=== PATIENT | female | born 1955 | race Caucasian/White ===

== ENCOUNTER 2020-05-31 11:12 | Inpatient (IN) | payer OTHER ==
[2020-05-31 12:09] LABS: Absolute Lymphocytes (CBC) 1.5 K/uL (0.7-4.9); Basophils % 0.1 % (0-1.3); Hematocrit 33.7 % (36.0-45.0); Lymphocytes % 5.8 % (15.3-44.8); MPV 8.7 fL (7.6-11.3); RBC Red Blood Cell Count 4.19 M/uL (3.86-4.86)
[2020-05-31] MEDS ORDERED: NA CHLORIDE 0.9% 2,000 ML ONE (12:13)
[2020-05-31 12:21] LABS: Protime INR 1.39
[2020-05-31] MEDS ORDERED: NA CHLORIDE 0.9% 250 ML ONE (12:36)
[2020-05-31] MEDS ORDERED: PANTOPRAZOLE 40 MG INJ ONE (12:36)
[2020-05-31] MEDS ORDERED: ACETAMINOPHEN 650MG/RECT SUPP PR ONE (12:44)
[2020-05-31] MEDS ORDERED: DIPHENHYDRAMINE 50 MG/ML VIAL ONE (12:44)
[2020-05-31 12:47] LABS: Platelet Estimate ADEQ; White Blood Cell Scan OK (OK)
[2020-05-31 12:48] LABS: Albumin 2.5 g/dL (3.4-5.0); Bilirubin Direct 0.8 mg/dL (0-0.2); Bilirubin Total 1.4 mg/dL (0.2-1.0); Blood Morphology Comment NOT SEEN (NOT SEEN); Platelets, Giant PRESENT; Potassium 4.4 mmol/L (3.5-5.1); Protein, Total 7.8 g/dL (6.4-8.2)
[2020-05-31] MEDS ORDERED: DOPAMINE/D5W 400 MG/250 ML BAG IV ONE ×2 (12:56→17:54)
--- NOTE | 2020-05-31 13:06 | EDPHYS ---
Physician Documentation [facility] Name: Inna Santiago Age: 64 yrs Sex: Female : 1955 Arrival Date: 05/31/2020 Time: 11:23 Bed 14 Private MD: ZAHRAA CUNNINGHAM ED Physician Maximino Sherman HPI: 05/31 12:58 This 64 yrs old Female presents to ER via Wheelchair with complaints of abena Breathing Difficulty, Shortness Of Breath. 12:58 This 64 yrs old Female presents to ER via Wheelchair with complaints of abena Breathing Difficulty, Shortness Of Breath. 12:58 The patient has shortness of breath at rest, with light activity. Onset: The abena symptoms/episode began/occurred 2 day(s) ago. Duration: The symptoms are continuous, and are steadily getting worse. The patient's shortness of breath is aggravated by coughing, exertion, light activity, supine position, talking, walking, is alleviated by pursed lip breathing, rest, application of supplemental oxygen. Associated signs and symptoms: Pertinent positives: non-productive cough. Severity of symptoms: At their worst the symptoms were moderate severe in the emergency department the symptoms are unchanged are worse markedly. The patient has not experienced similar symptoms in the past. 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 - Social history:: Smoking status: Patient denies any tobacco usage or history of. - Family history:: not pertinent. ROS: 12:58 Constitutional: Negative for fever, chills, and weight loss, Eyes: Negative for injury, abena pain, redness, and discharge, ENT: Negative for injury, pain, and discharge, Neck: Negative for injury, pain, and swelling, Cardiovascular: Negative for chest pain, palpitations, and edema, Abdomen/GI: Negative for abdominal pain, nausea, vomiting, diarrhea, and constipation, Back: Negative for injury and pain, : Negative for injury, bleeding, discharge, and swelling, MS/Extremity: Negative for injury and deformity, Skin: Negative for injury, rash, and discoloration, Psych: Negative for depression, anxiety, suicide ideation, homicidal ideation, and hallucinations, Allergy/Immunology: Negative for hives, rash, and allergies, Endocrine: Negative for neck swelling, polydipsia, polyuria, polyphagia, and marked weight changes, Hematologic/Lymphatic: Negative for swollen nodes, abnormal bleeding, and unusual bruising. 12:58 Respiratory: Positive for cough, with no reported sputum, dyspnea on exertion, shortness of breath, at rest. 12:58 Skin: Positive for pallor. Exam: 12:58 Head/Face: Normocephalic, atraumatic. Eyes: Pupils equal round and reactive to light, abena extra-ocular motions intact. Lids and lashes normal. Conjunctiva and sclera are non-icteric and not injected. Cornea within normal limits. Periorbital areas with no swelling, redness, or edema. ENT: Nares patent. No nasal discharge, no septal abnormalities noted. Tympanic membranes are normal and external auditory canals are clear. Oropharynx with no redness, swelling, or masses, exudates, or evidence of obstruction, uvula midline. Mucous membranes moist. Neck: Trachea midline, no thyromegaly or masses palpated, and no cervical lymphadenopathy. Supple, full range of motion without nuchal rigidity, or vertebral point tenderness. No Meningismus. Chest/axilla: Normal chest wall appearance and motion. Nontender with no deformity. No lesions are appreciated. Abdomen/GI: Soft, non-tender, with normal bowel sounds. No distension or tympany. No guarding or rebound. No evidence of tenderness throughout. Back: No spinal tenderness. No costovertebral tenderness. Full range of motion. Female : Normal external genitalia. Skin: Warm, dry with normal turgor. Normal color with no rashes, no lesions, and no evidence of cellulitis. 12:58 Constitutional: The patient appears lethargic, in obvious distress, moderately distressed. 12:58 Respiratory: moderate respiratory distress is noted, Respirations: labored breathing, Breath sounds: decreased breath sounds, rhonchi, that are mild, Respiratory rate: 87 13:19 ECG was reviewed by the Attending Physician. [facility] 13:23 Abdomen/GI: Rectal exam: is unremarkable, rectal tone Stool: guaiac negative, abena hemorrhoid(s), are not appreciated, mass, is not appreciated, swelling, is not appreciated, tenderness, is not appreciated, fecal impaction, is not appreciated. Vital Signs: 11:40 BP 102 / 62; Pulse 128; Resp 40 S; Temp 97.7(A); Pulse Ox 68% on R/A; Weight 66.22 kg aa5 (R); Height 5 ft. 2 in. (157.48 cm) (R); 11:40 Pulse Ox 95% on Non-rebreather mask; ca1 11:41 Pulse Ox 89% on Non-rebreather mask; aa5 12:32 BP 59 / 41; Pulse 67; Resp 35; Pulse Ox 93% on 100% BiPAP; zb 12:53 BP 58 / 36; Pulse 80; Resp 35; Pulse Ox 98% on 100% BiPAP; zb 12:58 BP 55 / 27; Pulse 87; Resp 27; Pulse Ox 94% on 100% BiPAP; zb 13:30 BP 89 / 39; Pulse 85; Resp 32; Pulse Ox 94% on 100% BiPAP; zb 14:19 BP 116 / 55; Pulse 95; Resp 30; Pulse Ox 96% on 100% BiPAP; zb 18:00 BP 111 / 49; Pulse 98; Resp 27; Pulse Ox 76% on 100% BiPAP; zb 18:30 BP 113 / 82; Pulse 86; Resp 28; Pulse Ox 87% on 100% BiPAP; zb 19:00 BP 120 / 61; Pulse 102; Resp 33; Pulse Ox 87% on 100% BiPAP; zb 19:21 BP 102 / 74; Pulse 100; Resp 33; Pulse Ox 87% on BiPAP; tt3 11:40 Body Mass Index 26.70 (66.22 kg, 157.48 cm) aa5 Procedures: 13:21 Central Line: the site was prepped with Betadine, in sterile fashion, a triple lumen abena catheter was inserted, in the right femoral vein, in 1 attempts. placement was verified, by blood return, the site was dressed with using sterile technique. MDM: 11:43 Patient medically screened. abena 13:10 Differential diagnosis: Anemia Bronchitis CHF exacerbation, Chronic Obstructive abena Pulmonary Disease Myocardial Infarction pneumonia, pulmonary edema, Pulmonary Embolism reactive airway disease, Sepsis Unstable Angina. Antibiotic administration: vanco and cefepime. The patient's Wells Deep Vein Thrombosis Score was calculated as follows: Total Score: 0-2 Pts- Low Risk. The patient's pulmonary embolism risk score was calculated as follows: Total Score: 0-2 points. This patient was found to be at low risk for a pulmonary embolism by using the Well's assessment criteria. Immunization status: Influenza vaccine: Data reviewed: vital signs, nurses notes, lab test result(s), EKG, radiologic studies, CT scan, plain films. Data interpreted: monitoring manager: rate is 87 beats/min, rhythm is regular, Pulse oximetry: on 100% oxygen by non-rebreather, is 92 %. Arterial blood gas: is normal. Test interpretation: by ED physician or midlevel provider: ECG, plain radiologic studies. Counseling: I had a detailed discussion with the patient and/or guardian regarding: the historical points, exam findings, and any diagnostic results supporting the discharge/admit diagnosis, lab results, radiology results. 05/31 11:46 Order name: C-Reactive Protein bp 05/31 11:46 Order name: Amylase, Serum bp 05/31 11:46 Order name: Basic Metabolic Panel bp 05/31 11:46 Order name: Blood Culture Adult (2) bp 05/31 11:46 Order name: CBC with Diff bp 05/31 11:46 Order name: Ckmb bp 05/31 11:46 Order name: CPK bp 05/31 11:46 Order name: Lactate bp 05/31 11:46 Order name: LFT's bp 05/31 11:46 Order name: Lipase bp 05/31 11:46 Order name: Procalcitonin bp 05/31 11:46 Order name: Protime (+inr) bp 05/31 11:46 Order name: Ptt, Activated bp 05/31 11:46 Order name: Troponin (emerg Dept Use Only) bp 05/31 11:46 Order name: Urine Microscopic Only bp 05/31 11:49 Order name: Basic Metabolic Panel abena 05/31 11:49 Order name: CBC with Diff abena 05/31 11:49 Order name: LFT's abena 05/31 11:49 Order name: Magnesium abena 05/31 11:49 Order name: NT PRO-BNP 05/31 11:49 Order name: PT-INR 05/31 11:49 Order name: Troponin (emerg Dept Use Only) abena 05/31 11:49 Order name: Lipase 05/31 11:49 Order name: Blood Culture Adult (2) abena 05/31 11:49 Order name: Urine Culture [facility] 05/31 11:49 Order name: Lactate [facility] 05/31 11:50 Order name: COVID-19 : Document "Date of Symptom Onset" if Symptomatic. [facility] 05/31 11:50 Order name: Ferritin bp 05/31 11:50 Order name: Flu bp 05/31 11:46 Order name: Chest Single View XRAY bp 05/31 11:49 Order name: XRAY Chest (1 view) [facility] 05/31 11:58 Order name: Type And Screen [facility] 05/31 12:03 Order name: Blood Culture [facility] 05/31 12:24 Order name: CBC with Automated Diff; Complete Time: 12:54 [facility] 05/31 12:25 Order name: Protime (+INR); Complete Time: 12:27 [facility] 05/31 12:25 Order name: PTT, Activated Partial Thromb; Complete Time: 12:27 [facility] 05/31 12:28 Order name: Glucose, Ancillary Testing; Complete Time: 12:29 [facility] 05/31 12:31 Order name: Lactate; Complete Time: 12:54 [facility] 05/31 12:47 Order name: ABG [facility] 05/31 12:49 Order name: CBC Smear Scan; Complete Time: 12:54 [facility] 05/31 12:55 Order name: Basic Metabolic Panel; Complete Time: 13:14 [facility] 05/31 12:55 Order name: Liver (Hepatic) Function; Complete Time: 13:14 [facility] 05/31 12:55 Order name: Creatine Phosphokinase; Complete Time: 13:14 [facility] 05/31 12:55 Order name: Amylase; Complete Time: 13:14 [facility] 05/31 12:55 Order name: Lipase; Complete Time: 13:14 [facility] 05/31 12:55 Order name: Procalcitonin; Complete Time: 12:55 [facility] 05/31 12:58 Order name: Type and Screen [facility] 05/31 12:59 Order name: ABO/RH no charge; Complete Time: 13:09 [facility] 05/31 13:10 Order name: CKMB Creatine Kinase MB; Complete Time: 13:14 [facility] 05/31 13:10 Order name: Troponin (Emerg Dept Use Only); Complete Time: 13:14 [facility] 05/31 13:10 Order name: C-Reactive Protein; Complete Time: 13:14 [facility] 05/31 13:23 Order name: CORONAVIRUS [facility] 05/31 13:24 Order name: Influenza Screen (A [facility] 05/31 13:43 Order name: ABG Arterial Blood Gas; Complete Time: 14:25 [facility] 05/31 14:24 Order name: COVID-19/FLU A+B; Complete Time: 14:25 [facility] 05/31 15:18 Order name: Urine Dipstick--Ancillary (enter results) eb 05/31 15:26 Order name: Lactate sg 05/31 15:30 Order name: Urine Dipstick-Ancillary; Complete Time: 20:32 [facility] 05/31 16:03 Order name: Urine Microscopic Only; Complete Time: 20:32 [facility] 05/31 16:27 Order name: Lactate Sepsis 2 HR Follow-up; Complete Time: 20:32 [facility] 05/31 21:29 Order name: Glucose, Ancillary Testing [facility] 05/31 11:46 Order name: Accucheck; Complete Time: 12:25 bp 05/31 11:46 Order name: Cardiac monitoring; Complete Time: 12:25 bp 05/31 11:46 Order name: EKG - Nurse/Tech; Complete Time: 12:25 bp 05/31 11:46 Order name: IV Saline Lock - Large Bore; Complete Time: 12:25 bp 05/31 11:46 Order name: Labs collected and sent; Complete Time: 12:25 bp 05/31 11:46 Order name: O2 Per Protocol; Complete Time: 12:25 bp 05/31 11:46 Order name: O2 Sat Monitoring; Complete Time: 12:25 bp 05/31 11:46 Order name: Urine Dipstick-Ancillary (obtain specimen); Complete Time: 16:39 bp 05/31 11:49 Order name: EKG; Complete Time: 11:50 abena 05/31 11:49 Order name: Urine Dipstick-Ancillary (obtain specimen); Complete Time: 16:39 abena 05/31 11:49 Order name: Don; Complete Time: 16:39 abena 05/31 11:49 Order name: BIPAP [facility] 05/31 12:23 Order name: Central Line Kit; Complete Time: 12:24 abena 05/31 12:30 Order name: CT Chest, Abdomen, Pelvis - W/Contrast [facility] 03/11 13:17 Order name: EKG; Complete Time: 13:18 abena 05/31 13:17 Order name: EKG - Nurse/Tech; Complete Time: 16:49 abena 05/31 15:09 Order name: RAD; Complete Time: 20:32 EDMS 05/31 19:35 Order name: XRAY Chest (1 view) em 05/31 20:31 Order name: RAD; Complete Time: 20:32 EDMS 05/31 20:31 Order name: XRAY Chest (1 view) [id number] 05/31 20:57 Order name: RAD EDTN 05/31 21:27 Order name: XRAY Chest (1 view) mw2 EC:19 Rate is 84 beats/min. Rhythm is regular. QRS [place] is Normal. [place] interval is normal. QRS abena interval is normal. QT interval is normal. No Q waves. T waves are Normal. ST Segment is depressed in leads II, III, aVF, V2, V3, V4, V5, V6. Administered Medications: 11:46 Drug: NS 0.9% (30 ml/kg) 30 ml/kg Route: IV; Rate: bolus; Site: right antecubital; aa5 12:45 Drug: ProTONIX 80 mg Route: IVP; Site: right antecubital; zb 13:45 Follow up: Response: No adverse reaction zb 12:45 Drug: Dopamine drip 5 mcg/kg/min - (DOPamine 400 mg, D5W 250 ml) Route: IV; Rate: zb calculated rate; Site: right femoral; 23:06 Follow up: Response: No adverse reaction; Blood pressure is elevated; IV Status: zb Infusion continued; IV Intake: 300ml 13:16 Drug: vancoMYCIN 1 grams Route: IVPB; Infused Over: 2 hrs; Site: right forearm; zb 15:13 Follow up: Response: No adverse reaction; IV Status: Completed infusion; IV Intake: zb 250ml 13:39 Drug: Levophed (4 mg/250 mL D5W 4 mcg/min Route: IV; Rate: calculated rate; Site: right zb forearm; 23:25 Follow up: IV Status: Infusion continued upon admission zb 14:00 Drug: Pepcid 20 mg Route: IVP; Site: left antecubital; zb 15:00 Follow up: Response: No adverse reaction zb 14:06 Drug: Cefepime 1 grams Route: IVPB; Rate: 200 ml/hr; Infused Over: 30 mins; Site: left zb forearm; 15:06 Follow up: Response: No adverse reaction; IV Status: Completed infusion; IV Intake: zb 100ml 14:24 Drug: Solu-CORTEF 100 mg Route: IVP; Site: right femoral; zb 15:00 Follow up: Response: No adverse reaction zb 14:24 Drug: Aspirin Suppository 300 mg Route: IL; zb 15:00 Follow up: Response: No adverse reaction zb 16:38 Drug: ProTONIX 8 mg/hr Route: IV; Rate: 25 ml/hr; Site: left antecubital; zb 18:38 Follow up: IV Status: Order to discontinue infusion; IV Intake: 50ml zb 17:15 Drug: Heparin (NE-Bolus No thrombolytic) - HEParin 60 units/kg {Co-Signature: bp (Alphonso Sawyer RN).} Route: IVP; Site: left forearm; 17:20 Follow up: Response: No adverse reaction zb 17:17 Drug: Heparin (NE Drip) 12 units/kg/hr - (HEParin 17656 units, D5W 500 ml) zb {Co-Signature: bp (Alphonso Sawyer RN).} Route: IV; Rate: calculated rate; Site: left forearm; 23:06 Follow up: Response: No adverse reaction; IV Status: Infusion continued zb 17:18 Drug: Cefepime 1 grams Route: IVPB; Rate: 200 ml/hr; Infused Over: 30 mins; Site: right zb femoral; 18:00 Follow up: Response: No adverse reaction; IV Status: Completed infusion; IV Intake: zb 100ml 19:27 Drug: Etomidate 15 mg Route: IVP; Site: right antecubital; em 20:00 Follow up: Response: No adverse reaction zb 19:29 Drug: Succinylcholine 100 mg Route: IVP; Site: right antecubital; em 20:00 Follow up: Response: Marked relief of symptoms zb 19:44 Drug: fentaNYL (PF) 50 mcg Route: IVP; Site: right antecubital; em 20:00 Follow up: Response: No adverse reaction; Marked relief of symptoms zb 19:45 Drug: Versed 2 mg Route: IVP; Site: right antecubital; em 20:00 Follow up: Response: No adverse reaction; Marked relief of symptoms zb 19:46 Drug: Propofol 5 mcg/kg/min {Note: initiated at 5 mcg/min.} Route: IV; Rate: calculated em rate; Site: right femoral; 23:15 Follow up: Response: No adverse reaction; IV Status: Infusion continued zb 20:10 Drug: fentaNYL (PF) 1 mcg/kg/h {Note: initiated at 30 mcg/hr.} Route: IV; Rate: em calculated rate; Site: right antecubital; 23:16 Follow up: Response: No adverse reaction; IV Status: Infusion continued upon transfer zb Disposition: 05/31/20 13:05 Hospitalization ordered by Jed Mercado for Inpatient Admission. Preliminary diagnosis are Hypotension, Hypoxemia, Severe sepsis with septic shock, Type 1 diabetes mellitus, Pneumonia, unspecified organism - bilateral covid 19 positive. - Bed requested for Intensive Care Unit. - Status is Inpatient Admission. mw2 - Condition is Guarded. - Problem is new. - Symptoms are unchanged. Signatures: Dispatcher [employer] Lubna Okeefe RN Maximino Owen MD MD cha Munoz, Edgar RN Farzana Antony RN RN aa5 Woody Olea PA PA [id number] Peltier, Brian, RN RN bp Margarita Carpenter mw2 Helen Sanchez RN RN ca1 Brown, Zipporah, RN RN zb Alphonso Sawyer RN bp Corrections: (The following items were deleted from the chart) 12:25 11:49 Cardiac monitoring ordered. [facility]5 12:25 11:49 EKG - Nurse/Tech ordered. [facility] aa5 12:26 11:49 IV Saline Lock ordered. [facility] aa5 12:26 11:49 Labs collected and sent ordered. [facility] aa5 12:26 11:49 Oxygen Per Protocol ordered. [facility] aa5 12:26 11:49 O2 Sat Monitoring ordered. [facility] aa5 13:05 13:05 Hospitalization Ordered by Jed Mercado for Inpatient Admission. Preliminary [facility] diagnosis is Hypotension; Hypoxemia; Severe sepsis with septic shock; Type 1 diabetes mellitus. Bed requested for Intensive Care Unit. Status is Inpatient Admission. Condition is Guarded. Problem is new. Symptoms are unchanged. abena 14:27 13:05 05/31/2020 13:05 Hospitalization Ordered by Jed Mercado for Inpatient abena Admission. Preliminary diagnosis is Hypotension; Hypoxemia; Severe sepsis with septic shock; Type 1 diabetes mellitus; Pneumonia, unspecified organism - bilateral. Bed requested for Intensive Care Unit. Status is Inpatient Admission. Condition is Guarded. Problem is new. Symptoms are unchanged. abena 20:12 14:27 05/31/2020 13:05 Hospitalization Ordered by Jed Mercado for Inpatient dw Admission. Preliminary diagnosis is Hypotension; Hypoxemia; Severe sepsis with septic shock; Type 1 diabetes mellitus; Pneumonia, unspecified organism - bilateral covid 19 positive. Bed requested for Intensive Care Unit. Status is Inpatient Admission. Condition is Guarded. Problem is new. Symptoms are unchanged. abena 21:38 20:12 05/31/2020 13:05 Hospitalization Ordered by Jed Mercado for Inpatient mw2 Admission. Preliminary diagnosis is Hypotension; Hypoxemia; Severe sepsis with septic shock; Type 1 diabetes mellitus; Pneumonia, unspecified organism - bilateral covid 19 positive. Bed requested for Intensive Care Unit. Status is Inpatient Admission. Condition is Guarded. Problem is new. Symptoms are unchanged. dw
--- NOTE | 2020-05-31 13:06 | ER ---
Nurse's Notes [facility] Name: Inna Santiago Age: 64 yrs Sex: Female : 1955 Arrival Date: 05/31/2020 Time: 11:23 Bed 14 Private MD: ZAHRAA CUNNINGHAM Diagnosis: Hypotension;Hypoxemia;Severe sepsis with septic shock;Type 1 diabetes mellitus;Pneumonia, unspecified organism-bilateral covid 19 positive Presentation: 05/31 11:33 Acuity: VAMSHI 1 ca1 11:40 Chief complaint: Patient states: SOB since Thursday. Pt appears cyanotic. Coronavirus ca1 screen: Client denies travel out of the [place] in the last 14 days. shortness of breath, Client presents with at least one sign or symptom that may indicate coronavirus-19. Standard/surgical mask placed on the client. Provider contacted for isolation considerations. Ebola Screen: Patient negative for fever greater than or equal to 101.5 degrees Fahrenheit, and additional compatible Ebola Virus Disease symptoms Patient denies exposure to infectious person. Patient denies travel to an Ebola-affected area in the 21 days before illness onset. No symptoms or risks identified at this time. Initial Sepsis Screen: Does the patient meet any 2 criteria? RR > 20 per min. HR > 90 bpm. Does the patient have a suspected source of infection? Yes: Productive cough/pneumonia If YES to both, name of provider notified: Maximino Sherman MD. Risk Assessment: Do you want to hurt yourself or someone else? Patient reports no desire to harm self or others. Onset of symptoms was May 28, 2020. 11:40 Method Of Arrival: Wheelchair ca1 Triage Assessment: 11:43 General: Appears distressed, uncomfortable. ca1 12:00 Respiratory: Onset: The symptoms/episode began/occurred gradually. zb Historical: - Allergies: 11:43 No Known Allergies; ca1 - PMHx: 11:43 Diabetes - IDDM; Hyperlipidemia; Hypertension; Myocardial infarction; ca1 - PSHx: 11:43 Cholecystectomy; CABG(December 21, 2014); ca1 - Immunization history:: Flu vaccine is not up to date. - Social history:: Smoking status: Patient denies any tobacco usage or history of. - Family history:: not pertinent. Screenin:00 Tuberculosis screening: No symptoms or risk factors identified. zb 12:53 Abuse screen: Denies threats or abuse. Denies injuries from another. Nutritional zb screening: n/a. Fall Risk None identified. Assessment: 11:35 Reassessment: O2 via NRB given. ca1 11:36 General: Appears distressed, uncomfortable. Neuro: Level of Consciousness is awake, aa5 alert, obeys commands, Oriented to person, place, time, situation. Cardiovascular:. Respiratory: Reports shortness of breath Airway is patent Respiratory effort is labored, Respiratory pattern is tachypnea. Derm: Skin is clammy, Cyanosis noted to lips Skin is pale, Skin temperature is cool. 11:50 Neuro: Level of Consciousness is awake, alert, obeys commands, Oriented to person, aa5 place, time, situation. Respiratory: Reports SOB has improved Airway is patent Respiratory effort is labored, Respiratory pattern is tachypnea. Derm: Skin is dry, Skin is pale, but color has improved, no cyanosis noted at this time. Skin temperature is cool. 11:55 Reassessment: Placed on Bi-PAP by RT . aa5 12:15 Reassessment: ECP at bedside placing central line. IV placed and Bolus infusing. zb 12:30 Reassessment: notified ECP about patient blood pressure, placed on vasopressor. IV zb bolus continued to infuse. 12:45 Reassessment: dopamine increased to 20mcg. zb 12:54 General: Appears distressed, Behavior is calm, cooperative, appropriate for age. Pain: zb Denies pain. Neuro: Level of Consciousness is awake, alert, obeys commands, Oriented to person, place, time, situation. Cardiovascular: Capillary refill is > 3 seconds is sluggish in bilateral fingers toes Rhythm is regular. Respiratory: Reports shortness of breath at rest Airway is patent Respiratory effort is labored, Respiratory pattern is tachypnea Patient placed on BiPAP: Inspiratory Pressure: 14 Expiratory (EPAP) Pressure: 7 FiO2%: 100 Respiratory Rate: 14 Breath sounds are coarse bilaterally. Breath sounds with wheezes bilaterally. the patient has severe shortness of breath. GI: Abdomen is round non-distended. : No signs and/or symptoms were reported regarding the genitourinary system. EENT: No signs and/or symptoms were reported regarding the EENT system. Derm: Skin is dry, Skin is pale, Skin temperature is cool. Musculoskeletal: Circulation, motion, and sensation intact. Range of motion: intact in all extremities. 13:55 Reassessment: Increased Levophed to 30mcg and dopamine 20mcg. blood pressure 95/38 zb (54). 89 heart rate. Reassessment: pt remains aox4. remains on bipap. spoke to patient notified him that would be staying her in the hospital updated on care. 14:30 Reassessment: pt remains aox4, remains on bicap. color in face. marie placed patient zb tolerated well. Vasopressors infusing at this time. 16:12 Reassessment: notified RT of patient's declining respiratory status. RT at bedside zb adjusting sets. patient remains slight lethargic but oriented. 16:50 Reassessment: spoke to ECP and doctor garnett about patient status. dr. garnett stayed zb okay to intubate patient. notified JOSE Alejandro and house cleaner supervisor to call anesthesia. 17:00 Reassessment: RT remains at bedside. Reassessment: anesthesia at bedside with RT ready zb to intubated. PA at bedside as well. 17:30 Reassessment: Notified RT of patient o2 levels. RT at bedside adjusting patients zb settings. 19:50 Reassessment: x-ray at bedside to verify placement of ET tube. em 20:15 Reassessment: NG tubed placed in left nare. zb 20:30 Reassessment: report called and given to MARCELL curry. zb 20:45 Reassessment: RT at bedside to help with transfer of patient. zb 21:11 Reassessment: patient about the be transferred up stairs, started turning cyanotic, zb pads placed PEA, CPR started, Code called. 21:12 Reassessment: Epigiven. zb 21:15 Reassessment: bicarb given, weak pulse found. zb 21:16 Reassessment: BGL 398. zb 21:30 Reassessment: patient more stable at this time. notified hospitalist patient ready to zb transfer. 06/01 00:26 Reassessment: vital signs not completed at this time. Data cleared by house keeping. Vital Signs: 05/31 11:40 BP 102 / 62; Pulse 128; Resp 40 S; Temp 97.7(A); Pulse Ox 68% on R/A; Weight 66.22 kg aa5 (R); Height 5 ft. 2 in. (157.48 cm) (R); 11:40 Pulse Ox 95% on Non-rebreather mask; ca1 11:41 Pulse Ox 89% on Non-rebreather mask; aa5 12:32 BP 59 / 41; Pulse 67; Resp 35; Pulse Ox 93% on 100% BiPAP; zb 12:53 BP 58 / 36; Pulse 80; Resp 35; Pulse Ox 98% on 100% BiPAP; zb 12:58 BP 55 / 27; Pulse 87; Resp 27; Pulse Ox 94% on 100% BiPAP; zb 13:30 BP 89 / 39; Pulse 85; Resp 32; Pulse Ox 94% on 100% BiPAP; zb 14:19 BP 116 / 55; Pulse 95; Resp 30; Pulse Ox 96% on 100% BiPAP; zb 18:00 BP 111 / 49; Pulse 98; Resp 27; Pulse Ox 76% on 100% BiPAP; zb 18:30 BP 113 / 82; Pulse 86; Resp 28; Pulse Ox 87% on 100% BiPAP; zb 19:00 BP 120 / 61; Pulse 102; Resp 33; Pulse Ox 87% on 100% BiPAP; zb 19:21 BP 102 / 74; Pulse 100; Resp 33; Pulse Ox 87% on BiPAP; tt3 11:40 Body Mass Index 26.70 (66.22 kg, 157.48 cm) aa5 ED Course: 11:23 Patient arrived in ED. am2 11:24 ZAHRAA CUNNINGHAM is Private Physician. am2 11:33 Triage completed. ca1 11:40 Arm band placed on right wrist. aa5 11:40 Patient has correct armband on for positive identification. Bed in low position. Side aa5 rails up X2. ocean lifeguard on. Pulse ox on. NIBP on. 11:40 Inserted saline lock: 20 gauge in right antecubital area, using aseptic technique. aa5 ,using aseptic technique. IV inserted by Alphonso Sawyer RN Blood collected. 11:40 First set of blood cultures drawn by ED staff. aa5 11:43 Maximino Sherman MD is Attending Physician. abena 11:44 Digna, Alphonso, RN is Primary Nurse. bp 12:07 Inserted saline lock: 18 gauge in left forearm, using aseptic technique. aa5 12:07 Second set of blood cultures drawn by me. aa5 12:10 Inserted saline lock: 20 gauge in left antecubital area, using aseptic technique. aa5 12:15 Assisted provider with central line placement. Set up central line tray. Triple lumen aa5 line placed in right femoral. Line placed by Maximino Sherman MD Placement verified by blood return, Patient tolerated well. Was handwashing/sanitizing done immediately prior to procedure? Yes. Was procedure site sterilized? Betadine . Was the site allowed to dry? Yes. Was local anesthetic and/or sedation utilized? Yes. During the procedure, did the Practitioner(s) maintain a sterile field? Yes. 12:32 Makenna Blount, MARCELL is Primary Nurse. zb 13:04 Jed Mercado is Hospitalizing Provider. abena 13:36 [facility] eb 13:42 patient declined at [facility] per [facility] due to being at capacity. eb 19:30 Assisted provider with intubation using 7.5 mm ETT via oral route. ET tube secured at em 22cm at the lips. Set up intubation tray. Intubated by Kd Winston MD Placement verified by CO2 detector w/ + color change, auscultating bilateral breath sounds, End-tidal CO2 montioring CXR, Patient tolerated well. 21:30 Patient admitted, IV remains in place. zb Administered Medications: 11:46 Drug: NS 0.9% (30 ml/kg) 30 ml/kg Route: IV; Rate: bolus; Site: right antecubital; aa5 12:45 Drug: ProTONIX 80 mg Route: IVP; Site: right antecubital; zb 13:45 Follow up: Response: No adverse reaction zb 12:45 Drug: Dopamine drip 5 mcg/kg/min - (DOPamine 400 mg, D5W 250 ml) Route: IV; Rate: zb calculated rate; Site: right femoral; 23:06 Follow up: Response: No adverse reaction; Blood pressure is elevated; IV Status: zb Infusion continued; IV Intake: 300ml 13:16 Drug: vancoMYCIN 1 grams Route: IVPB; Infused Over: 2 hrs; Site: right forearm; zb 15:13 Follow up: Response: No adverse reaction; IV Status: Completed infusion; IV Intake: zb 250ml 13:39 Drug: Levophed (4 mg/250 mL D5W 4 mcg/min Route: IV; Rate: calculated rate; Site: right zb forearm; 23:25 Follow up: IV Status: Infusion continued upon admission zb 14:00 Drug: Pepcid 20 mg Route: IVP; Site: left antecubital; zb 15:00 Follow up: Response: No adverse reaction zb 14:06 Drug: Cefepime 1 grams Route: IVPB; Rate: 200 ml/hr; Infused Over: 30 mins; Site: left zb forearm; 15:06 Follow up: Response: No adverse reaction; IV Status: Completed infusion; IV Intake: zb 100ml 14:24 Drug: Solu-CORTEF 100 mg Route: IVP; Site: right femoral; zb 15:00 Follow up: Response: No adverse reaction zb 14:24 Drug: Aspirin Suppository 300 mg Route: IA; zb 15:00 Follow up: Response: No adverse reaction zb 16:38 Drug: ProTONIX 8 mg/hr Route: IV; Rate: 25 ml/hr; Site: left antecubital; zb 18:38 Follow up: IV Status: Order to discontinue infusion; IV Intake: 50ml zb 17:15 Drug: Heparin (NM-Bolus No thrombolytic) - HEParin 60 units/kg {Co-Signature: bp (Alphonso Sawyer RN).} Route: IVP; Site: left forearm; 17:20 Follow up: Response: No adverse reaction zb 17:17 Drug: Heparin (NM Drip) 12 units/kg/hr - (HEParin 44064 units, D5W 500 ml) zb {Co-Signature: bp (Alphonso Sawyer RN).} Route: IV; Rate: calculated rate; Site: left forearm; 23:06 Follow up: Response: No adverse reaction; IV Status: Infusion continued zb 17:18 Drug: Cefepime 1 grams Route: IVPB; Rate: 200 ml/hr; Infused Over: 30 mins; Site: right zb femoral; 18:00 Follow up: Response: No adverse reaction; IV Status: Completed infusion; IV Intake: zb 100ml 19:27 Drug: Etomidate 15 mg Route: IVP; Site: right antecubital; em 20:00 Follow up: Response: No adverse reaction zb 19:29 Drug: Succinylcholine 100 mg Route: IVP; Site: right antecubital; em 20:00 Follow up: Response: Marked relief of symptoms zb 19:44 Drug: fentaNYL (PF) 50 mcg Route: IVP; Site: right antecubital; em 20:00 Follow up: Response: No adverse reaction; Marked relief of symptoms zb 19:45 Drug: Versed 2 mg Route: IVP; Site: right antecubital; em 20:00 Follow up: Response: No adverse reaction; Marked relief of symptoms zb 19:46 Drug: Propofol 5 mcg/kg/min {Note: initiated at 5 mcg/min.} Route: IV; Rate: calculated em rate; Site: right femoral; 23:15 Follow up: Response: No adverse reaction; IV Status: Infusion continued zb 20:10 Drug: fentaNYL (PF) 1 mcg/kg/h {Note: initiated at 30 mcg/hr.} Route: IV; Rate: em calculated rate; Site: right antecubital; 23:16 Follow up: Response: No adverse reaction; IV Status: Infusion continued upon transfer zb Outcome: 13:05 Decision to Hospitalize by Provider. abena 21:30 Admitted to ICU accompanied by nurse, via stretcher, room 7, with oxygen, on monitor, zb with chart, Report called to MARCELL Curry 21:30 critical 21:30 Instructed on the need for admit, Demonstrated understanding of instructions, follow-up care. 21:38 Patient left the ED. mw2 Signatures: Maximino Sherman MD MD cha Munoz, Edgar RN MARCELL em Farzana Nguyen RN RN aa5 Haleigh Candelario am2 Alphonso Sawyer RN RN bp Margarita Carpenter mw2 Lori Guerra Cheryl, RN RN ca1 Bertin Salomon tt3 Makenna Blount RN RN zb Alphonso Sawyer RN bp Corrections: (The following items were deleted from the chart) 11:45 11:40 Chief complaint: Patient states: SOB since Thursday. Pt appears cyanotic. ca1 ca1 11:46 11:45 Reassessment: O2 via NRB given ca1 ca1 12:30 11:40 BP 102 / 62; Pulse 128bpm; Resp 28bpm; Spontaneous; Pulse Ox 86% RA; Temp 96.3F aa5 Temporal; 66.22 kg Reported; Height 5 ft. 2 in. Reported; BMI: 26.7; ca1 12:36 11:43 Arm band placed on right wrist. ca1 aa5 13:00 12:32 BP 59 / 41; Pulse 67bpm; Resp 35bpm; Pulse Ox 93% 02 100% CPAP; zb zb 13:00 12:53 BP 58 / 36; Pulse 80bpm; Resp 35bpm; Pulse Ox 98% 02 100% CPAP; zb zb
[2020-05-31 13:08] LABS: CKMB Creatine Kinase MB 41.8 ng/mL (0.3-3.6); Troponin (Emerg Dept Use Only) 15.9 ng/mL (0.0-0.045)
[2020-05-31 13:20] LABS: Arterial Blood Carboxyhemoglob 1.6 % (0-1.5); Blood Gas Oxyhemoglobin 80.3 % (94-97); Blood O2 Saturation 82.4 % (92-98.5)
[2020-05-31] MEDS ORDERED: NOREPINEPHRINE 4mg/D5W 250mL 4 MG/250 ML BAG IV ONE ×4 (13:33→23:36)
[2020-05-31] MEDS ORDERED: HYDROCORTISONE SUC 100 MG INJ ONE (14:01)
[2020-05-31] MEDS ORDERED: NA CHLORIDE 0.9% 100 ML ONE (14:01)
[2020-05-31] MEDS ORDERED: ASPIRIN 600 MG/SUPP PR ONE (14:01)
[2020-05-31] MEDS ORDERED: CEFEPIME/SWI 1gm 10 ML ONE ×2 (14:02→17:44)
[2020-05-31] MEDS ORDERED: FAMOTIDINE 20 MG/2 ML VIAL IV ONE (14:02)
[2020-05-31 14:24] LABS: SARS-COV-2 RT PCR POSITIVE (NEGATIVE)
--- NOTE | 2020-05-31 15:08 | RAD REPORT ---
EXAM DESCRIPTION: Silvana Single View05/31/2020 12:44 pm CLINICAL HISTORY: Shortness of breath COMPARISON: 2016 FINDINGS: Marked bilateral alveolar pulmonary opacities. . The heart is mildly enlarged. Postsurgical changes involve the chest. IMPRESSION: Marked bilateral pulmonary alveolar opacities may represent pulmonary edema or pneumonia
[2020-05-31 15:30] LABS: Urine Blood 2+ (NEG); Urine Glucose NEGATIVE (NEG); Urine Protein 2+ (NEG)
[2020-05-31] MEDS ORDERED: VANCOMYCIN/NS 1 gm 1 GM/250 ML BAG IVPB ONE (16:00)
[2020-05-31] MEDS ORDERED: PANTOPRAZOLE INJ 80 MG in NA CHLORIDE 0.9% 250 ML IV SCH (16:00)
[2020-05-31 16:02] LABS: Urine Bacteria <20 /HPF (<20); Urine RBC <5 /HPF (NONE SEEN)
--- NOTE | 2020-05-31 17:05 | P.HP ---
Certification for Inpatient Patient admitted to: Inpatient With expected LOS: >2 Midnights Practitioner: I am a practitioner with admitting privileges, knowledge of patient current condition, hospital course, and medical plan of care. Services: Services provided to patient in accordance with Admission requirements found in Title 42 Section 412.3 of the Code of Federal Regulations Patient History Date of Service: 05/31/20 Reason for admission: Shortness of breath History of Present Illness: 64-year-old woman with a known history of GA, peripheral vascular disease, diabetes mellitus type 2 was brought to the emergency department in acute respiratory distress. Patient reports progressive shortness of breath of a few days duration. She was hypoxic on room air and was placed on BiPAP therapy. Patient was hypotensive in the ED. Blood pressure did not respond to normal saline bolus and was therefore started on vasopressors. Blood work shows severe leukocytosis, metabolic acidosis, severely elevated lactic acid. Sepsis protocol initiated in the ED. Blood cultures obtained, patient given IV cefepime and vancomycin, central line placed. Chest x-ray demonstrated severe bilateral pulmonary infiltrates. Noted she recently had vascular stent placed in her leg. Her COVID 19 screen is positive. Patient admitted for COVID pneumonia with acute respiratory failure and septic shock. Allergies No Known Allergies Allergy (Verified 12/31/15 10:00) Home Medications: Aspirin 81 mg PO DAILY 10/28/11 Gabapentin [Neurontin] 400 mg PO TID 01/22/14 Clopidogrel Bisulfate [Plavix] 50 mg PO DAILY 11/09/15 Insulin 70/30 NPH/Reg Human [Novolin 70/30*] 60 units SQ BID 11/09/15 Metoprolol Succinate [Toprol Xl*] 50 mg PO DAILY 11/09/15 Sertraline [Zoloft*] 100 mg PO DAILY 11/09/15 Ciprofloxacin HCl [Cipro 500 MG Tablet] 500 mg PO BID #20 tab 11/10/15 metroNIDAZOLE [Flagyl] 500 mg PO Q8H #30 tablet 11/10/15 - Past Medical/Surgical History Diabetic: Yes -: GA -: PVD -: Neuropathy -: IDDM -: HTN -: Hyperlipidemia -: Cholecystectomy -: CABG - Social History Alcohol use: No CD- Drugs: No Caffeine use: No Review of Systems Other: Unable to obtain due to severe respiratory distress. Physical Examination - Physical Exam General: Acute distress, Other HEENT: Atraumatic, Normocephalic, PERRLA, EOMI Neck: Supple, JVD not distended Respiratory: Diminished (Bilateral), Crackles/rales (Bilateral) Cardiovascular: No edema, Regular rate/rhythm, Other (Tachycardia) Gastrointestinal: Normal bowel sounds, Soft and benign, Non-distended, No tenderness Musculoskeletal: No swelling Integumentary: Other (Venostasis dermatitis) Neurological: Normal speech, Normal strength at 5/5 x4 extr, Cranial nerves 3-12 intact Urinary: Don catheter - Studies Laboratory Data (last 24 hrs) 05/31/20 11:49: PT Cancelled, INR Cancelled 05/31/20 11:49: WBC Cancelled, Hgb Cancelled, Hct Cancelled, Plt Count Cancelled 05/31/20 11:49: Sodium Cancelled, Potassium Cancelled, BUN Cancelled, Creatinine Cancelled, Glucose Cancelled, Magnesium Cancelled, Total Bilirubin Cancelled, AST Cancelled, ALT Cancelled, Alkaline Phosphatase Cancelled, Lipase Cancelled 05/31/20 11:46: PT 16.0 H, INR 1.39, APTT 35.7 05/31/20 11:46: WBC 25.10 H*, Hgb 10.5 L, Hct 33.7 L, Plt Count 399 05/31/20 11:46: Sodium 135 L, Potassium 4.4, BUN 42 H, Creatinine 1.26, Glucose 80, Total Bilirubin 1.4 H, AST 670 H*, ALT 295 H, Alkaline Phosphatase 143 H, Amylase 46, Lipase 95 Assessment and Plan - Problems (Diagnosis) (1) Pneumonia due to 2019 novel coronavirus Current Visit: Yes Status: Acute (2) Acute respiratory failure with hypoxia Current Visit: Yes Status: Acute (3) Septic shock Current Visit: Yes Status: Acute (4) DM type 2 (diabetes mellitus, type 2) Current Visit: Yes Status: Acute (5) Peripheral vascular disease Current Visit: Yes Status: Acute (6) Metabolic acidosis Current Visit: Yes Status: Acute (7) Elevated liver enzymes Current Visit: Yes Status: Acute (8) Elevated troponin level Current Visit: Yes Status: Acute - Plan Admit to ICU. Droplet isolation Continue sepsis protocol initiated in the ED. Resuscitation with IV normal saline. Continue Levophed and titrate. Aggressive antibiotic therapy-IV cefepime and vancomycin Follow blood cultures obtained in the ED. Start IV Solumedrol. BiPAP therapy Pulmonary consult Elevated troponin likely secondary to COVID sepsis. ACS not ruled out. Continue to trend troponin Obtain echocardiogram Start full-dose Lovenox for thromboprophylaxis as well as anticoagulation for NSTEMI. Cardiology consult Keep NPO for now Insulin sliding scale for glucose management. - Advance Directives Does patient have a Living Will: No Does patient have a Durable POA for Healthcare: No Critical Care: Yes (Critical care time spent on septic shock and respiratory failure: 38 min.) Time Spent Managing Pts Care (In Minutes): 72
[2020-05-31] MEDS ORDERED: HEPARIN/D5W 25,000 UNIT/500 ML BAG IV ONE (17:08)
[2020-05-31] MEDS ORDERED: HEPARIN 5000 UNIT/ML 1 ML VIAL ONE (17:08)
[2020-05-31] MEDS ORDERED: CEFEPIME 1 GM/10 ML SYR IV SCH (18:34)
[2020-05-31] MEDS ORDERED: NA CHLORIDE 0.9% 500 ML IV ONE (18:34)
[2020-05-31] MEDS ORDERED: INSULIN -REGULAR HUMAN 50 UNIT/0.5 ML ML SQ SCH (18:34)
[2020-05-31] MEDS ORDERED: ACETAMINOPHEN 500 MG TAB PO PRN (18:34)
[2020-05-31] MEDS ORDERED: ONDANSETRON 4 MG/2 ML VIAL IV PRN (18:34)
--- NOTE | 2020-05-31 18:47 | P.INFCA ---
Sepsis Focused Assessment - Focused Assessment Complete? Sepsis Focused Assessment Completed?: Yes - Sepsis Screen Result Severe Sepsis: Positive Septic Shock: Positive - Evaluation Current stage of sepsis: Septic shock - Vital Signs Reviewed: Yes - Examination Date exam was performed: 05/31/20 Time exam was performed: 17:10 Heart: S1, S2, Tachycardia Lungs: Crackles Peripheral pulses: 1+ Faint Peripheral pulse location: Radial Capillary refill: <2 Seconds Skin examination: Normal turgor
[2020-05-31] MEDS ORDERED: propofoL 1,000 MG/100 ML VIAL IV ONE (19:40)
[2020-05-31] MEDS ORDERED: MIDAZOLAM HCL 2 MG/2 ML INJ ONE ×2 (19:40→20:06)
[2020-05-31] MEDS ORDERED: RSI MEDICATION KIT IV ONE (19:40)
[2020-05-31] MEDS ORDERED: FENTANYL CITR 100 MCG/2 ML ONE ×2 (20:00→20:09)
[2020-05-31] MEDS ORDERED: NA CHLORIDE 0.9% 50 ML ONE (20:09)
[2020-05-31 20:21] LABS: Arterial Blood Carboxyhemoglob 0.8 % (0-1.5); Blood Gas Oxyhemoglobin 81.1 % (94-97); Blood O2 Saturation 82.3 % (92-98.5)
--- NOTE | 2020-05-31 20:31 | RAD REPORT ---
EXAM DESCRIPTION: Silvana Single View05/31/2020 7:53 pm CLINICAL HISTORY: Device placement endotracheal tube placement IMPRESSION: An endotracheal tube has been inserted with its tip at the level of the mid aortic arch 2.5 centimeters above the lazarus There has been worsening in extensive bilateral pulmonary opacities
--- NOTE | 2020-05-31 20:57 | RAD REPORT ---
EXAM DESCRIPTION: Silvana Single View05/31/2020 8:46 pm CLINICAL HISTORY: Device placement endotracheal tube placement IMPRESSION: An endotracheal tube has been inserted with its tip 4 centimeters above lazarus. It is at the level overlying the top of the aortic arch. A nasogastric tube has been inserted 5 centimeters into the stomach. No change in extensive bilateral pulmonary opacities
[2020-05-31] MEDS ORDERED: METHYLPREDNISOLONE 40 MG INJ IV SCH (21:00)
[2020-05-31] MEDS ORDERED: propofoL 1,000 MG/100 ML VIAL IV PRN (21:05)
[2020-05-31] MEDS ORDERED: DOPAMINE/D5W 400 MG/250 ML BAG IV PRN (21:05)
[2020-05-31] MEDS: NA CHLORIDE 0.9% 1,000 ML IV SCH (22:34)
[2020-05-31] MEDS: NOREPINEPHRINE 4 MG in D5W 250 ML IV PRN (23:39)
[2020-06-01] MEDS: ENOXAPARIN 60 MG/0.6 ML SQ SCH ×2 (00:16→09:27)
[2020-06-01] MEDS: INSULIN -REGULAR HUMAN 50 UNIT/0.5 ML ML SQ SCH ×3 (00:17→13:21)
[2020-06-01] MEDS ORDERED: NA CHLORIDE 0.9% 250 ML IV PRN (00:20)
[2020-06-01] MEDS ORDERED: HALOPERIDOL LACT 5 MG/ML INJ IV PRN (00:20)
[2020-06-01] MEDS ORDERED: FENTANYL CITR 100 MCG/2 ML IV PRN (00:20)
[2020-06-01] MEDS ORDERED: MIDAZOLAM HCL 2 MG/2 ML INJ IV PRN (00:20)
[2020-06-01] MEDS: CEFEPIME/SWI 1gm 10 ML IVP SCH ×2 (00:57→09:26)
[2020-06-01] MEDS: LORazepam 2 MG/ML VIAL IV PRN ×4 (01:00→15:56)
[2020-06-01] MEDS ORDERED: NOREPINEPHRINE 4 MG/4 ML VIAL ONE ×2 (01:23→03:21)
[2020-06-01] MEDS ORDERED: D5W 250 ML IV ONE ×2 (01:23→03:22)
[2020-06-01 05:04] LABS: Absolute Lymphocytes (CBC) 0.7 K/uL (0.7-4.9); Basophils % 0.1 % (0-1.3); Hematocrit 31.2 % (36.0-45.0); Lymphocytes % 2.4 % (15.3-44.8); MPV 9.2 fL (7.6-11.3); RBC Red Blood Cell Count 3.88 M/uL (3.86-4.86)
[2020-06-01 05:38] VITALS: BMI 27.8
[2020-06-01 05:42] LABS: Bilirubin Total 1.5 mg/dL (0.2-1.0); Potassium 3.9 mmol/L (3.5-5.1); Protein, Total 6.4 g/dL (6.4-8.2)
[2020-06-01 06:04] LABS: Arterial Blood Carboxyhemoglob 0.7 % (0-1.5); Blood Gas Oxyhemoglobin 79.2 % (94-97); Blood O2 Saturation 80.4 % (92-98.5)
--- NOTE | 2020-06-01 06:49 | EKG ---
Test Date: 2020-05-31 Test Time: 21:20:16 Envelope Maker: RT-O MEASUREMENT RESULTS: Intervals: Rate: 127 UT: 146 QRSD: 116 QT: 326 QTc: 473 [place]: P: 45 UT: 146 QRS: 64 T: 259 INTERPRETIVE STATEMENTS: Sinus tachycardia with occasional premature ventricular complexes Incomplete left bundle branch block ST & T wave abnormality, consider inferolateral ischemia Abnormal ECG Compared to ECG 05/31/2020 21:19:31 Ventricular premature complex(es) now present ST (T wave) deviation still present Possible ischemia still present Electronically Signed On 06-01-20 06:49:02 INVENTORY TECHNICIAN by Arian Higgins
--- NOTE | 2020-06-01 06:49 | EKG ---
Test Date: 2020-05-31 Test Time: 21:19:31 Weather Teacher: RT-O MEASUREMENT RESULTS: Intervals: Rate: 121 [place]: 120 QRSD: 118 QT: 324 QTc: 460 [place]: P: [place]: 120 QRS: 68 T: 147 INTERPRETIVE STATEMENTS: Sinus tachycardia Incomplete left bundle branch block ST & T wave abnormality, consider inferolateral ischemia Abnormal ECG Compared to ECG 12/31/2015 10:22:26 Left bundle-branch block now present Sinus bradycardia no longer present ST (T wave) deviation still present Possible ischemia still present Electronically Signed On 06-01-20 06:49:04 TOW PICKER by Arian Higgins
--- NOTE | 2020-06-01 06:51 | EKG ---
Test Date: 2020-05-31 Test Time: 11:39:51 Woodworking Machine Setter: TIN MEASUREMENT RESULTS: Intervals: Rate: 84 [place]: 154 QRSD: 98 QT: 396 QTc: 467 [place]: P: -25 SC: 154 QRS: 76 T: 174 INTERPRETIVE STATEMENTS: Sinus rhythm with premature supraventricular complexes Marked ST abnormality, possible lateral subendocardial injury Abnormal ECG Compared to ECG 12/31/2015 10:22:26 Atrial premature complex(es) now present Sinus bradycardia no longer present Possible ischemia no longer present ST (T wave) deviation still present Electronically Signed On 06-01-20 06:49:15 QUALITY ASSURANCE GROUP LEADER by Arian Higgins
[2020-06-01] MEDS: NOREPINEPHRINE 4 MG in D5W 250 ML IV PRN (07:13)
[2020-06-01] MEDS: NA CHLORIDE 0.9% 1,000 ML IV SCH (07:54)
--- NOTE | 2020-06-01 08:33 | RAD REPORT ---
EXAM DESCRIPTION: RAD - Chest Single View - 05/31/2020 9:44 pm CLINICAL HISTORY: post CPR Chest pain. COMPARISON: Chest Single View dated 05/31/2020; Chest Single View dated 05/31/2020; Chest Single View dated 05/31/2020; CHEST SINGLE VIEW dated 05/06/2015 FINDINGS: Portable technique limits examination quality. Tip of the endotracheal tube is unchanged in position slightly above the level of the aortic arch. En teric tube tip is in the stomach. Extensive bilateral pulmonary opacities is unchanged.The heart is m ildly enlarged in size with sternotomy wires present.
[2020-06-01] MEDS ORDERED: METHYLPREDNISOLONE 125 MG INJ IV SCH (09:00)
[2020-06-01] MEDS ORDERED: FAMOTIDINE 20 MG/2 ML VIAL IV SCH ×2 (09:00)
[2020-06-01] MEDS ORDERED: NOREPINEPHRINE 8 MG in Dextrose 5%-Water 500 ML IV PRN (09:38)
[2020-06-01 10:21] LABS: Platelet Estimate ADEQ
[2020-06-01 10:22] LABS: Blood Morphology Comment NOT SEEN (NOT SEEN)
--- NOTE | 2020-06-01 12:20 | P.CNS ---
Date of Consult: 06/01/20 Reason for Consult: Respiratory failure shock Chief Complaint: Respiratory failure and shock History of Present Illness: Patient is 64 years of age with a history of coronary artery disease diabetes peripheral vascular disease recently had some stents placed came to the emergency room with progressive dyspnea hypotensive was intubated transferred to the ICU multiorgan failure Vladislav hypoxic hypotensive multiple vasopressors 10 still bilateral interstitial changes patient is positive for márquez virus Allergies No Known Allergies Allergy (Verified 12/31/15 10:00) Home Medications: Aspirin 81 mg PO DAILY 10/28/11 Gabapentin [Neurontin] 400 mg PO TID 01/22/14 Clopidogrel Bisulfate [Plavix] 50 mg PO DAILY 11/09/15 Insulin 70/30 NPH/Reg Human [Novolin 70/30*] 60 units SQ BID 11/09/15 Metoprolol Succinate [Toprol Xl*] 50 mg PO DAILY 11/09/15 Sertraline [Zoloft*] 100 mg PO DAILY 11/09/15 Ciprofloxacin HCl [Cipro 500 MG Tablet] 500 mg PO BID #20 tab 11/10/15 metroNIDAZOLE [Flagyl] 500 mg PO Q8H #30 tablet 11/10/15 - Past Medical/Surgical History Diabetic: Yes -: NH -: PVD -: Neuropathy -: IDDM -: HTN -: Hyperlipidemia -: Cholecystectomy -: CABG -: 3 stents 05/24/20 - Social History Smoking Status: Unknown if ever smoked Alcohol use: No CD- Drugs: No Caffeine use: No Place of Residence: Home Review of Systems is unable to be obtained Physical Examination Temp Pulse Resp BP Pulse Ox 97.8 F 88 30 H 105/62 95 06/01/20 04:00 06/01/20 06:00 06/01/20 06:00 06/01/20 06:00 06/01/20 06:00 General: Unresponsive Respiratory: Crackles/rales (Crackles bilaterally) Cardiovascular: No edema, Regular rate/rhythm Gastrointestinal: No rebound Laboratory Data (last 24 hrs) 05/31/20 11:46: PT 16.0 H, INR 1.39, APTT 35.7 05/31/20 11:46: WBC 25.10 H*, Hgb 10.5 L, Hct 33.7 L, Plt Count 399 05/31/20 11:46: Sodium 135 L, Potassium 4.4, BUN 42 H, Creatinine 1.26, Glucose 80, Total Bilirubin 1.4 H, AST 670 H*, ALT 295 H, Alkaline Phosphatase 143 H, Amylase 46, Lipase 95 - Problems (1) Acute respiratory failure with hypoxia Current Visit: Yes Status: Acute Plan: Patient admitted with shock respiratory failure extensive bilateral interstitial lung disease multiorgan failure acute hepatocellular injury acute renal injury significant hypoxemia elevated by count recommendation would be to ovoid IV fluids continue with vasopressors wean off dopamine continue with Levophed increase Solu-Medrol chest x-ray reviewed prognosis poor on likely to survive due to multiorgan failure recent coronary artery stents at [facility]
[2020-06-01 13:37] VITALS: TEMP 101
[2020-06-01] MEDS ORDERED: VANCOMYCIN 1.25 GM in NA CHLORIDE 0.9% 250 ML IVPB SCH (14:00)
--- NOTE | 2020-06-01 14:49 | P.PN ---
Subjective Date of Service: 06/01/20 Chief Complaint: Respiratory failure and shock Patient is reported to have developed PEA in the ED. ACLS carried out with ROSC. Patient maintained on 2 vasopressors overnight. Dopamine has been weaned off. Patient currently on Levophed. She is unresponsive and not needing sedation. She also has persistent fever. Physical Examination - Vital Signs Temperature: 101 F Blood Pressure: 156/98 Pulse: 105 Respirations: 40 Pulse Ox (%): 82 - Physical Exam General: Unresponsive HEENT: Other (ETT) Respiratory: Crackles/rales Cardiovascular: No edema, Other (Tachycardic) Gastrointestinal: Soft and benign, Non-distended Musculoskeletal: No swelling Integumentary: No rashes Neurological: Other (Unresponsive. No limb movement.) Assessment And Plan - Current Problems (Diagnosis) (1) Pneumonia due to 2019 novel coronavirus Current Visit: Yes Status: Acute (2) Acute respiratory failure with hypoxia Current Visit: Yes Status: Acute (3) Septic shock Current Visit: Yes Status: Acute (4) DM type 2 (diabetes mellitus, type 2) Current Visit: Yes Status: Acute (5) Peripheral vascular disease Current Visit: Yes Status: Acute (6) Metabolic acidosis Current Visit: Yes Status: Acute (7) Elevated liver enzymes Current Visit: Yes Status: Acute (8) Elevated troponin level Current Visit: Yes Status: Acute (9) Coronary artery disease Current Visit: Yes Status: Acute - Plan Continue aggressive IV antibiotics Continue Levophed and titrate. Blood cultures: No growth to date. Continue IV Solumedrol. Patient intubated and on mechanical ventilation. Pulmonary input appreciated Elevated troponin likely secondary to COVID sepsis. ACS not ruled out given patient had a recent cardiac stent. Obtain echocardiogram Continue full-dose Lovenox for thromboprophylaxis as well as anticoagulation for NSTEMI. Poor prognosis. 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 She is still hypoxic on the vent. Chance of meaningful recovery is very limited. Recommending DNR and comfort measures at this time.
[2020-06-01] MEDS ORDERED: MORPHINE 4 MG/ML SYR IV PRN (15:46)
[2020-06-01] MEDS ORDERED: GLYCOPYRROLATE 0.2 MG/ML SYR IV PRN (15:47)
[2020-06-01] MEDS ORDERED: VANCOMYCIN/NS 1 gm 1 GM/250 ML BAG IVPB SCH (16:00)
[2020-06-01] MEDS ORDERED: Caclcium Chloride 10% INJ SYR IV ONE (16:36)
[2020-06-01] MEDS ORDERED: EPINEPHrine 1 MG/10 ML SYR IV ONE (16:36)
[2020-06-01 17:15] VITALS: BP 95/38
[2020-06-01 17:23] VITALS: O2SAT 78
--- NOTE | 2020-06-01 18:13 | P.DS ---
Admission Date: 05/31/20 Discharge Date: 06/01/20 Disposition: Reason for Admission: Respiratory failure and shock - Problems (1) Pneumonia due to 2019 novel coronavirus Status: Acute (2) Acute respiratory failure with hypoxia Status: Acute (3) Septic shock Status: Acute (4) DM type 2 (diabetes mellitus, type 2) Status: Acute (5) Peripheral vascular disease Status: Acute (6) Metabolic acidosis Status: Acute (7) Elevated liver enzymes Status: Acute (8) Elevated troponin level Status: Acute (9) Coronary artery disease Status: Acute Brief History of Present Illness: 64-year-old woman with a known history of MT, peripheral vascular disease, diabetes mellitus type 2 was brought to the emergency department in acute respiratory distress. Patient reports progressive shortness of breath of a few days duration. She was hypoxic on room air and was placed on BiPAP therapy. Patient was hypotensive in the ED. Blood pressure did not respond to normal saline bolus and was therefore started on vasopressors. Blood work shows severe leukocytosis, metabolic acidosis, severely elevated lactic acid. Sepsis protocol initiated in the ED. Blood cultures obtained, patient given IV cefepime and vancomycin, central line placed. Chest x-ray demonstrated severe bilateral pulmonary infiltrates. Noted she recently had vascular stent placed in her leg. Her COVID 19 screen is positive. Patient admitted for COVID pneumonia with acute respiratory failure and septic shock. Hospital Course: Patient admitted to the ICU and treated for septic shock with aggressive IV hydration, IV antibiotics and vasopressors. Patient was at a point requiring 2 vasopressors. He was also treated for COVID pneumonia with IV steroid. Patient was intubated in the emergency department and mechanical ventilation started. She did not respond to treatment. She continued to decline with progressive hypoxia despite mechanical ventilation and persistent hypotension. Patient son and spouse requested for comfort measures. They stated this is in line with her wishes. Comfort measures was initiated. Patient on 06/01/2020 at 1637 hours. Vital Signs/Physical Exam: Temp Pulse Resp BP Pulse Ox 101 F H 121 H 37 H 95/38 L 78 L 06/01/20 14:51 06/01/20 16:30 06/01/20 16:30 06/01/20 16:30 06/01/20 16:30 Laboratory Data at Discharge: WBC 29.60 K/uL (4.3-10.9) H* D 06/01/20 04:20 Hgb 9.7 g/dL (12.0-15.0) L 06/01/20 04:20 Hct 31.2 % (36.0-45.0) L 06/01/20 04:20 Plt Count 337 K/uL (152-406) 06/01/20 04:20 PT Cancelled 05/31/20 11:49 INR Cancelled 05/31/20 11:49 APTT 52.9 SECONDS (24.3-36.9) H 05/31/20 22:11 Sodium 132 mmol/L (136-145) L 06/01/20 04:20 Potassium 3.9 mmol/L (3.5-5.1) 06/01/20 04:20 BUN 71 mg/dL (7-18) H D 06/01/20 04:20 Creatinine 1.77 mg/dL (0.55-1.3) H 06/01/20 04:20 Glucose 445 mg/dL (74-106) H* 06/01/20 04:20 Magnesium Cancelled 05/31/20 11:49 Total Bilirubin 1.5 mg/dL (0.2-1.0) H 06/01/20 04:20 AST 40836 U/L (15-37) H* D 06/01/20 04:20 ALT 3782 U/L (12-78) H* D 06/01/20 04:20 Alkaline Phosphatase 190 U/L (45-117) H 06/01/20 04:20 Amylase 46 U/L (25-115) 05/31/20 11:46 Lipase Cancelled 05/31/20 11:49 Home Medications: Aspirin 81 mg PO DAILY 10/28/11 Gabapentin [Neurontin] 400 mg PO TID 01/22/14 Clopidogrel Bisulfate [Plavix] 50 mg PO DAILY 11/09/15 Insulin 70/30 NPH/Reg Human [Novolin 70/30*] 60 units SQ BID 11/09/15 Metoprolol Succinate [Toprol Xl*] 50 mg PO DAILY 11/09/15 Sertraline [Zoloft*] 100 mg PO DAILY 11/09/15 Ciprofloxacin HCl [Cipro 500 MG Tablet] 500 mg PO BID #20 tab 11/10/15 metroNIDAZOLE [Flagyl] 500 mg PO Q8H #30 tablet 11/10/15 Followup: Jose Rabago PA [Primary Care Provider] -
--- NOTE | 2020-06-02 08:34 | EKG ---
Test Date: 2020-05-31 Test Time: 13:33:14 [employer]: AZEB MEASUREMENT RESULTS: Intervals: Rate: 85 WV: 142 QRSD: 94 QT: 418 QTc: 497 [place]: P: 59 WV: 142 QRS: 77 T: 261 INTERPRETIVE STATEMENTS: Normal sinus rhythm ST & T wave abnormality, consider inferior ischemia ST & T wave abnormality, consider anterolateral ischemia Prolonged QT Abnormal ECG Compared to ECG 05/31/2020 11:39:51 Possible ischemia now present Prolonged QT interval now present Atrial premature complex(es) no longer present ST (T wave) deviation still present Electronically Signed On 06-02-20 08:29:41 NURSE ADMINISTRATOR by Arian Higgins
--- NOTE | 2020-06-04 08:24 | ECHO ---
HEIGHT: 5 ft 2 in WEIGHT: 152 lb 1.6 oz DATE OF STUDY: 06/01/[address]: vee thomson 2-DIMENSIONAL: YES M.MODE: YES DOPPLER: YES COLOR FLOW: YES TDS: NO PORTABLE: YES DEFINITY: NO BUBBLE STUDY: NO DIAGNOSIS: CARDIOGENIC SHOCK CARDIAC HISTORY: CATHERIZATION: SURGERY: PROSTHETIC VALVE: PACEMAKER: MEASUREMENTS (cm) DIASTOLIC (NORMALS) SYSTOLIC (NORMALS) IVSd 1.1 (0.6-1.2) LA Diam 3.2 (1.9-4.0) LVEF 26% LVIDd 5.4 (3.5-5.7) LVIDs 4.7 (2.0-3.5) %FS 12% LVPWd 1.1 (0.6-1.2) Ao Diam 2.9 (2.0-3.7) 2 DIMENSIONAL ASSESSMENT: RIGHT ATRIUM: NORMAL LEFT ATRIUM: NORMAL RIGHT VENTRICLE: NORMAL LEFT VENTRICLE: NORMAL SIZE TRICUSPID VALVE: NORMAL MITRAL VALVE: MITRAL ANNULAR CALCIFICATION PULMONIC VALVE: NORMAL AORTIC VALVE: NORMAL PERICARDIAL EFFUSION: NONE AORTIC ROOT: NORMAL LEFT VENTRICULAR WALL MOTION: SEVERE GLOBAL HYPOKINESIS. DOPPLER/COLOR FLOW: MILD MITRAL AND TRICUSPID REGURGITATION. NORMAL RIGHT VENTRICULAR SYSTOLIC PRESSURE. COMMENTS: SEVERE GLOBAL HYPOKINESIS. LEFT VENTRICULAR EJECTION FRACTION 26%. MILD MITRAL AND TRICUSPID REGURGITATION. NORMAL RIGHT VENTRICULAR SYSTOLIC PRESSURE. NO EFFUSION. TECHNOLOGIST: Jameson BURNS
== END 2020-06-01 16:37 | disposition expired | DRG 871 ==
LOC: ER 11:12 → ERHOLD 15:17 → 3RD-ICU 20:47
PROVIDERS: ADMIT Internal Medicine; ATTEND Internal Medicine
PROC: 5A09357 Assistance with Respiratory Ventilation, Less than 24 Consecutive Hours, Continuous Positive Airway Pressure (ICD-10-PCS; 2020-05-31)
PROC: 06HY33Z Insertion of Infusion Device into Lower Vein, Percutaneous Approach (ICD-10-PCS; 2020-05-31)
PROC: 8E0ZXY6 Isolation (ICD-10-PCS; 2020-05-31)
PROC: 5A1935Z Respiratory Ventilation, Less than 24 Consecutive Hours (ICD-10-PCS; principal; 2020-06-01)
PROC: 0BH17EZ Insertion of Endotracheal Airway into Trachea, Via Natural or Artificial Opening (ICD-10-PCS; 2020-06-01)
DX: A41.89 Other specified sepsis (principal); U07.1 COVID-19; J12.82 Pneumonia due to coronavirus disease 2019; R65.21 Severe sepsis with septic shock; J96.01 Acute respiratory failure with hypoxia; I21.4 Non-ST elevation (NSTEMI) myocardial infarction; E87.2 Acidosis; N17.9 Acute kidney failure, unspecified; I10 Essential (primary) hypertension; E78.5 Hyperlipidemia, unspecified; E11.51 Type 2 diabetes mellitus with diabetic peripheral angiopathy without gangrene; E11.40 Type 2 diabetes mellitus with diabetic neuropathy, unspecified; I25.2 Old myocardial infarction; K76.9 Liver disease, unspecified; I25.10 Atherosclerotic heart disease of native coronary artery without angina pectoris; R94.5 Abnormal results of liver function studies; R77.8 Other specified abnormalities of plasma proteins; Z66 Do not resuscitate; Z79.4 Long term (current) use of insulin; Z79.82 Long term (current) use of aspirin; Z95.1 Presence of aortocoronary bypass graft; Z90.49 Acquired absence of other specified parts of digestive tract; Z79.899 Other long term (current) drug therapy; Z78.1 Physical restraint status
CPT/HCPCS: 0240U; 31500; 36415; 71045; 80048; 80053; 80076; 80202; 81003; 81015; 82150; 82550; 82553; 82728; 82805; 82947; 83605; 83690; 84145; 84484; 85025; 85610; 85730; 86140; 86850; 86900; 86901; 87040; 87086; 87088; 93005; 93306; 94002; 94003; 94660; 99291; 99292; C9113; J0171; J0692; J1200; J1265; J1644; J1650; J1720; J2250; J2704; J2920; J2930; J3010; J3370; J7030; J7050; J7060